=== PATIENT | female | born 1945 | race Caucasian/White ===

== ENCOUNTER 2020-04-15 11:00 | Emergency (ER) | payer MEDICARE, OTHER ==
[~2020-04-15] VITALS: Ht 152.4 cm; Wt 63.5 kg
[~2020-04-15 11:00] MED LIST: GABAPENTIN300 MG PO; NORCO 10MG-325MG1 EA PO; NORVASC5 MG PO; PREVACID30 MG PO; TYLENOL WITH C1 EACH PO; VALIUM2 MG PO
[2020-04-15] MEDS ORDERED: KETOROLAC TROMETHAMINE 60 MG/2 ML VIAL IM ONE (11:45)
--- OUTSIDE RECORDS SUMMARY | 2020-04-15 11:48 | XMS REPORT | Clinical Summary ---
Author Author [facility] Address Unknown Phone Unavailable Care Team Providers Care Dispatcher Street Department Name Role Phone David Suarez MD PCP Unavailable Allergies No Known Allergies Medications End Date Status Medication Sig Dispensed Refills Start Date Active lansoprazole (PREVACID) Take 30 mg by 0 30 MG capsule mouth daily. Active acetaminophen-codeine Take 1 tablet 0 (TYLENOL #4) 300-60 mg by mouth per tablet every 4 (four) hours as needed for Pain. Active metoprolol (TOPROL-XL) 25 Take 25 mg by 0 MG 24 hr tablet mouth daily. Active calcium citrate Take 1 tablet 0 (CALCITRATE) 200 mg (950 by mouth mg) tablet daily. Active aspirin 81 MG EC tablet Take 81 mg by 0 mouth daily. Active Problems Problem Noted Date Mass of finger of left hand 01/28/2017 Arthritis of carpometacarpal (CMC) joint of right jamari mb 01/28/2017 S/P lumbar laminectomy 09/27/2015 Social History Date Tobacco Use Types Packs/Day Years Used Never Smoker Alcohol Use Drinks/Week oz/Week Comments Yes 2 Glasses of 1.2 wine Sex Assigned at Date Recorded Not on file Industry Job Start Date Occupation Not on file Not on file Not on file Travel End Travel History Travel Start No recent travel history available. Last Filed Vital Signs Not on file Plan of Treatment Not on file Implants Device Identifier Shelf Expiration Date Model / Serial / L ot Implanted Type Area Manufactur er 03/21/2021 [id number] / / [id number] [place] Mini+ Ethbnd 2-0 - [place]/Art Right: Hand J [id number] hroscopy &J:ETHICON Implanted: Qty: 1 on 01/28/2017 by :Ramesh Menjivar IV, MD PRDT 06/21/2021 [id number] / / [id number] [place] Mini+ Ethbnd 2-0 - [place]/Art Right: Hand J [id number] hroscopy &J:ETHICON Implanted: Qty: 1 on 01/28/2017 by :Ramesh Menjivar IV, MD PRDT 12/19/2016 [id number] / / [id number] Floseal 10 Ml Cement/Pankaj N/A: Spine PEARSON Implanted: Qty: 3 on 09/25/2015 by ler/Adhesi [employer] Adis Delgadillo MD ve 04/21/2017 [id number] / / [id number] Cage Acculif Pl 6-9mm [id number] - IMPLANTS N/A: Spine MICHAEL:ST [id number] Lumbar BEAU Implanted: Qty: 1 on 09/25/2015 by Adis Osman MD 05/21/[id number] / / [id number] Bone Grft Foam Bioact 5cc Pk IMPLANTS N/A: Spine S TRYKER:ST - [id number] Lumbar BEAU Implanted: Qty: 1 on 09/25/2015 by Adis Osman MD [id number] / / [id number] Surjit Rad 5.5 X 70mm [id number] - IMPLANTS N/A: Spine MICHAEL:ST [id number] Lumbar BEAU Implanted: Qty: 2 on 09/25/2015 by Adis Osman MD 05/21/[id number] / / [id number] Bone Grft Foam Bioact 10cc Pk IMPLANTS N/A: Spine MICHAEL:ST - [id number] Lumbar BEAU Implanted: Qty: 1 on 09/25/2015 by Adis Osman MD 08/29/2016 [id number] / [id number] / [id number] Bone Grft Sub Allgrft Pty 5ml IMPLANTS N/A: Spine MICHAEL:ST [id number] - [id number] Lumbar BEAU Implanted: Qty: 1 on 09/25/2015 by Adis Lopez MD CS 06/19/2018 [id number] / [id number] / [id number] Bone Chip Canc 1.7-10mm 30ml IMPLANTS N/A: Spine M [place] [id number] - [id number] Lumbar LETAL Implanted: Qty: 1 on 09/25/2015 by Adis Valdes MD FND 02/18/2017 [id number] / / [id number] Cage Acculif Pl 6-9mm [id number] - IMPLANTS N/A: Spine MICHAEL:ST [id number] Lumbar BEAU Implanted: Qty: 1 on 09/25/2015 by Adis Osman MD [id number] / / Douglas Leigh Iii [id number] - IMPLANTS N/A: Spine STR YKER:ST [id number] Lumbar BEAU Implanted: Qty: 6 on 09/25/2015 by Adis Osman MD [id number] / / [id number] Scr Leigh 3 Poly 6.5x45mm Ti IMPLANTS N/A: Spine STR YKER:ST [id number] - [id number] Lumbar BEAU Implanted: Qty: 2 on 09/25/2015 by Adis Osman MD [id number] / / [id number] Scr Leigh 3 Poly 6.5x50mm Ti IMPLANTS N/A: Spine STR YKER:ST [id number] - [id number] Lumbar BEAU Implanted: Qty: 3 on 09/25/2015 by Adis Osman MD [id number] / / [id number] Scr Poly Axial 6.5 X 40 [id number] - IMPLANTS N/A: Spine MICHAEL:ST [id number] Lumbar BEAU Implanted: Qty: 1 on 09/25/2015 by Adis Osman MD Results Not on fileafter 04/15/2019 Insurance Payer Benefit Subscriber ID Type Phone Address Plan / Group HUMANA - MEDICARE MGD HUMANA xxxxxxxxx [facility] MEDICARE Contracted ADV [id number] Advance Directives For more information, please contact: [facility] [address] [place] [address] Date Inactivated Comments Code Status Date Activated 01/28/2017 8:58 PM Full Code 01/28/2017 11:25 AM This code status was determined by: Patient
--- OUTSIDE RECORDS SUMMARY | 2020-04-15 11:48 | XMS REPORT | Continuity of Care Document ---
Author Author [facility] t Organization [facility] Address [address] [place] [address] Phone Unavailable Care Team Providers Care Cio Name Role Phone David Suarez MD PCP Unavailable Smith ONTIVEROS Attphyaugie Unavailable Smith ONTIVEROS Admphys Unavailable Problems Condition Name Condition Details Condition Category Status Onset Date Resolution Date Last Treatment Date Treating Clinician Comments Source Mass of finger of left hand Mass of finger of left hand Disease Active 2017-01-28 00:00:00 [facility] Arthritis of carpometacarpal (CMC) joint of right thum b Arthritis of carpometacarpal (CMC) joint of right thumb Disease Active 2017-01-28 00:00:00 [facility] S/P lumbar laminectomy S/P lumbar laminectomy Disease Active 2015-09-27 00:00:00 [facility] Allergies, Adverse Reactions, Alerts This patient has no known allergies or adverse reactions. Social History Social Habit Start Date Stop Date Quantity Comments Source Sex Assigned At [facility] Smoking Status Start Date Stop Date Source Never smoker [facility] Medications Ordered Medication Name Filled Medication Name Start Date Stop Da te Current Medication? Ordering Clinician Indication Dosage Frequency Signature (SIG) Comments Components Source calcium citrate (CALCITRATE) 200 mg (950 mg) tablet 01-28 11:28:24 Yes 1{tbl} QD Take 1 tablet by mouth daily. [facility] aspirin 81 MG EC tablet 2017-01-28 11:28:24 Yes 81mg QD Take 81 mg by mouth daily. [facility] acetaminophen-codeine (TYLENOL #4) 300-60 mg per tablet 2017-01-26 11:42:55 Yes 1{tbl} Take 1 tablet b y mouth every 4 (four) hours as needed for Pain. [facility] metoprolol (TOPROL-XL) 25 MG 24 hr tablet 2017-01-26 11:42:55 Yes 25mg QD Take 25 mg by mouth daily. [facility] lansoprazole (PREVACID) 30 MG capsule 2015-09-18 15:32:16 Y es 30mg QD Take 30 mg by mouth daily. [facility] Procedures This patient has no known procedures. Results Test Description Test Time Test Comments Results Result Comments Source TISSUE EXAM 2017-02-01 13:08:00 Surgical Pat hology Report Case: [id number] Authorizing Provider: Ramesh Ontiveros MD Collected: 01/28/2017 1438 Ord ering Location: [facility] Received: 01/31/2017 1211 SERVICES Pathologist: Jeffery Cheng MD Specimen: Soft Tissue, Other, left thumb mass SOFT TISSUE, LEFT THUMB, EXCISION: - BENIGN FIBROCONNECTIVE TISSUE IDENTIFIED [id number] of carpometacarpal joint of right thumb, mass of left fingerLeft thumb massReceived in formalin labeled "soft tissue, other", description "left thumb mass" is a 1.0 x 0.5 x 0.2 cm quinn-white irregular rubbery fragment of soft tissue. The specimen is entirely submitted in cassette A1. CG/plPerformed. GLUCOSE 2017-01-26 14:51:00 Test Item GLUCOSE RANDOM ([facility]) (test code = 652) 100 mg/dL 70-105 Effective 2014: Reference Range Change-Adult onlyNew: 70-105 Previous: 70-110BUN AND [id number] 14:51:00* Test Item Value Reference Range Interpretation Comments BLOOD UREA NITROGEN (AKER) (test code = 354) 23 mg/dL 7-21 H CREATININE ([facility]) (test code = 358) 0.76 mg/dL 0.57-1.25 EGFR ([facility]) (test code = 1092) 75 mL/min/1.73 sq m ESTIMATED GFR IS NOT ACCURATE CREATININE CLEARANCE IN PREDICTING GLOMERULAR FILTRATION RATE. ESTIMATED GFR IS NOT APPLICABLE FOR DIALYSIS PATIENTS. [id number] 14:50:00* Test Item Value Reference Range Interpretation Comments SODIUM (BEAKER) (test code = 381) 139 meq/L 136-145 POTASSIUM (BEAKER) (test code = 379) 4.3 meq/L 3.5-5.1 CHLORIDE (BEAKER) (test code = 382) 108 meq/L 98-107 H CO2 (BEAKER) (test code = 355) 18 meq/L 22-29 L [id number] 13:37:00* Test Item Value Reference Range Interpretation Comments HEMOGLOBIN (BEAKER) (test code = 410) 15.0 GM/DL 12.0-15.0
[2020-04-15] MEDS ORDERED: DIFLUCAN100 MG PO (12:08)
[2020-04-15] MEDS ORDERED: MACROBID 100 M100 MG PO (12:08)
[2020-04-15] MEDS ORDERED: PREDNISONE20 MG PO (12:08)
--- NOTE | 2020-04-15 12:09 | Emergency Department Note ---
History of Present Illnes History of Present Illness Chief Complaint: vaginal yeast infection x 1 week, rgt lbp x 5 days History of Present Illness This is a 74 year old female. 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 Required: No Onset (how long ago): week(s) (1) Location: see above Quality: sharp Radiation: Reports non-radiation Severity: moderate Duration (how long): week(s) (1) Timing of current episode: constant Progression: worsening Chronicity: new Context: Denies recent illness, Denies recent surgery, Denies recent immobilization, Denies recent travel, Denies trauma/injury, Denies new medications, Denies hx of DVT/PE, Denies non-compliance w/ medications Relieving factors: rest Exacerbating factors: movement Associated symptoms: Reports denies other symptoms Treatments prior to arrival: none Past Medical/Family History Physician Review I have reviewed the patient's past medical and family history. Any updates have been documented here. Past Medical History Recent Fever: No Clinical Suspicion of Infectio: No New/Unexplained Change in Ment: No Past Medical History: Hypertension, UTI's Past Surgical History: Back Surgery Other Surgery: ANKLE WRIST Social History Smoking Cessation: Never Smoker Counseling Performed: No Alcohol Use: Occasional Any Illegal Drug Use: No Physically hurt or threatened: No Other Last Tetanus: UTD Any Pre-Existing Lines (PICC,: No Review of Systems Review of Systems Constitutional: Reports no symptoms EENTM: Reports no symptoms Cardiovascular: Reports no symptoms Respiratory: Reports no symptoms Gastrointestinal: Reports no symptoms Genitourinary: Reports as per HPI Musculoskeletal: Reports as per HPI, Reports back pain Integumentary: Reports no symptoms Neurological: Reports no symptoms Psychological: Reports no symptoms Endocrine: Reports no symptoms Hematological/Lymphatic: Reports no symptoms Review of other systems: All other systems negative Physical Exam Related Data Allergies: Coded Allergies: No Known Allergies (Unverified , 07/30/15) Triage Vital Signs Vital Signs Date Time Temp Pulse Resp B/P (MAP) Pulse Ox O2 Delivery O2 Flow Rate FiO2 04/15/20 11:10 98.5 65 16 203/97 100 Room Air Vital signs reviewed: Yes Physical Exam CONSTITUTIONAL Constitutional: Present well-developed, Present well-nourished HENT HENT: Present normocephalic, Present atraumatic, Present oropharynx clear/moist, Present nose normal HENT L/R: Present left ext ear normal, Present right ext ear normal EYES Eyes: Reports PERRL, Reports conjunctivae normal NECK Neck: Present ROM normal, Present supple PULMONARY Pulmonary: Present effort normal, Present breath sounds normal CARDIOVASCULAR Cardiovascular: Present regular rhythm, Present heart sounds normal, Present capillary refill normal, Present normal rate GASTROINTESTINAL Abdominal: Present soft, Present nontender, Present bowel sounds normal GENITOURINARY Genitourinary: Present exam deferred SKIN Skin: Present warm, Present dry MUSCULOSKELETAL Musculoskeletal: Present ROM normal, Present tenderness (rgt cva) NEUROLOGICAL Neurological: Present alert, Present oriented x 3, Present no gross motor or sensory deficits PSYCHOLOGICAL Psychological: Present mood/affect normal, Present judgement normal Results Laboratory Lab results reviewed: Yes (ua= +leuk) Critical Care Time Comments pain almost resolved s/p toradol Assessment & Plan Medical Decision Making MDM see below Assessment & Plan Final Impression: (1) Urinary tract infection (2) Vaginal candidiasis Depart Disposition: HOME, SELF-CARE Last Vital Signs Date Time Temp Pulse Resp B/P (MAP) Pulse Ox O2 Delivery O2 Flow Rate FiO2 04/15/20 11:10 98.5 65 16 203/97 100 Room Air Home Meds Active Scripts Prednisone (PREDNISONE) 20 Mg Tab, 20 MG PO DAILY PRN for MODERATE PAIN (4-6), #15 TAB take 3 20 mg pills at once Prov:KENNEDYROSALINDPalomo BALLARD 04/15/20 Nitrofurantoin Monohyd/M-Cryst (MACROBID 100 MG CAPSULE) 100 Mg Capsule, 100 MG PO BIDWM, #20 CAP Prov:BRENTROSALINDPalomo BALLARD 04/15/20 Fluconazole (DIFLUCAN) 100 Mg Tablet, 100 MG PO DAILY, #3 TAB 1 Refill Prov:BRENTJESSICACHICA BALLARD 04/15/20 Reported Medications Amlodipine Besylate (NORVASC) 5 Mg Tab, 5 MG PO DAILY, #30 TAB 07/30/15 Diazepam (VALIUM) 2 Mg Tablet, 2 MG PO PRN 07/30/15 Lansoprazole (PREVACID) 30 Mg Capsule.dr, 30 MG PO THERAPEUTIC INTERCHANGE WITH PROTONIX PER [facility] 07/30/15 Acetaminophen/Hydrocodone* (NORCO 10MG-325MG*) 1 Ea Tab, 1 TAB PO PRN, TAB 07/30/15 Gabapentin (GABAPENTIN) 300 Mg Capsule, 300 MG PO BID, #60 CAP 07/30/15 Acetaminophen With Codeine (TYLENOL WITH CODEINE #3 TABLET) 1 Each Tablet, 300 MG PO PRN, TAB 07/30/15 Medications in the ED Ketorolac Tromethamine 30 mg ONCE ONCE IM Last administered on 04/15/20at 11:44; Admin Dose 30 MG; Start 04/15/20 at 11:45; Stop 04/15/20 at 11:46 JESSICA KENNEDY Apr 15, 2020 12:08
[2020-04-15 12:25] VITALS: BP 208/99
== END 2020-04-15 12:20 | disposition home or self-care (01) ==
LOC: FSED 11:00
DX: N39.0 Urinary tract infection, site not specified (principal); B37.3 Candidiasis of vulva and vagina; I10 Essential (primary) hypertension
CPT/HCPCS: 81003; 96372; 99283; J1885